=== PATIENT | female | born 1945 | race Caucasian/White ===

== ENCOUNTER → 2018-12-27 07:37 | Outpatient (CLI) | payer MEDICARE, SELFPAY ==
[2018-12-27 08:59] LABS: Hematocrit 41.5 % (36-46); Hemoglobin 13.9 g/dL (12.0-16.0); Mean Corpuscular HGB Conc 33.5 % (30-36); Mean Corpuscular Hemoglobin 32.5 PG (26-34); Mean Corpuscular Volume 96.9 fL (80-100); Platelet Count 237 X10^3/uL (150-400); Red Blood Cell Count 4.29 X10^6/uL (4.0-5.2); Red Cell Distribution Width 12.9 % (11.6-14.8); White Blood Cell Count 5.3 X10^3/uL (4.5-11.0)
[2018-12-27 09:18] LABS: Albumin 4.4 g/dL (3.5-5.0); Albumin Globulin Ratio 1.5 (1.0-2.8); Alkaline Phosphatase 61 U/L (38-126); Aspartate Aminotransferase 38 IU/L (14-36); Bilirubin Total 0.8 mg/dL (0.2-1.3); Blood Urea Nitrogen 28 mg/dL (7-17); Calcium 9.4 mg/dL (8.4-10.2); Carbon Dioxide 30 mmol/L (22-32); Chloride 102 mmol/L (98-107); Cholesterol 195 mg/dL (140-199); Estimated Glomerular Filt Rate > 60.0 mL/min (>60); Globulin 2.9 g/dL (1.7-4.1); Glucose 85 mg/dL (80-110); HDL Cholesterol 88 mg/dL (40-60); HEMOLYSIS < 15 (0-50); LDL Cholesterol Calculated 95 mg/dL (<100); Potassium 4.1 mmol/L (3.4-5.1); Sodium 139 mmol/L (137-145); Total Protein 7.3 g/dL (6.3-8.2); Triglycerides 58 mg/dL (35-150)
[2018-12-27 09:23] LABS: Alanine Aminotransferase < 6 IU/L (9-52)
[2018-12-27 10:21] LABS: Folate > 20.0 ng/mL (2.76-20.0); Vitamin B12 474 pg/mL (239-931)
== END ==
PROVIDERS: Visit Provider Psychiatry & Neurology Neurology
DX: G20 Parkinson's disease (principal); G31.84 Mild cognitive impairment of uncertain or unknown etiology; E78.2 Mixed hyperlipidemia; Z79.82 Long term (current) use of aspirin; Z00.00 Encounter for general adult medical examination without abnormal findings
CPT/HCPCS: 36415; 80053; 80061; 82607; 82746; 85027